=== PATIENT | male | born 1945 | race Asian ===

== ENCOUNTER 2018-02-03 15:04 | Emergency (ER) | payer OTHER ==
[~2018-02-03] VITALS: Ht 165.1 cm; Wt 72.7 kg
[2018-02-03 15:17] LABS: GLUCOSE,POINT OF CARE 172 MG/DL (70-110)
[2018-02-03] MEDS ORDERED: INSLAN SQ (15:18)
[2018-02-03] MEDS ORDERED: ASCO500 PO (15:18)
[2018-02-03] MEDS ORDERED: ASPI81 PO (15:18)
[2018-02-03] MEDS ORDERED: ATOR20TA86 PO (15:18)
[2018-02-03] MEDS ORDERED: CLON-570 PO (15:18)
[2018-02-03] MEDS ORDERED: OLME40 PO (15:18)
[2018-02-03] MEDS ORDERED: METF500T4 PO (15:18)
[2018-02-03] MEDS ORDERED: AMLO-511 PO (15:18)
[2018-02-03] MEDS ORDERED: VITAD1000 PO (15:18)
[2018-02-03] MEDS ORDERED: FINA5TAB41 PO (15:18)
[2018-02-03] MEDS ORDERED: HYDR25TA PO (15:18)
[2018-02-03] MEDS ORDERED: LINA5TAB PO (15:18)
[2018-02-03] MEDS ORDERED: TAMS0.4C32 PO (15:19)
[2018-02-03 16:19] LABS: BASOPHILS % (AUTO) 0.5 % (0.0-2.0); EOSINOPHILS % (AUTO) 0.4 % (1.0-6.0); HEMATOCRIT 38.1 % (41-53); LYMPHOCYTES # (AUTO) 1.2 K/uL (1.0-4.8); LYMPHOCYTES % (AUTO) 12.6 % (22.0-44.0); MEAN CORPUSCULAR HEMOGLOBIN 34.3 pg (26.0-34.0); MEAN CORPUSCULAR HGB CONC 34.1 G/dL (31.0-37.0); MEAN CORPUSCULAR VOLUME 101 fL (80-100); MONOCYTES # (AUTO) 0.7 K/uL (0.1-1.0); MONOCYTES % (AUTO) 7.3 % (2.0-9.0); NEUTROPHILS # (AUTO) 7.7 K/uL (1.8-7.7); NEUTROPHILS % (AUTO) 79.2 % (40.0-70.0); PLATELET COUNT (AUTO) 201 K/uL (150-450); RED BLOOD CELL COUNT(AUTO) 3.78 MIL/uL (4.50-5.90); RED CELL DISTRIBUTION WIDTH 13.1 % (11.5-14.5)
[2018-02-03 16:29] LABS: ANION GAP 9 mmol/L (8-16); CALCIUM, TOTAL 9.4 mg/dL (8.8-10.5); CARBON DIOXIDE 27 mmol/L (22-29); CHLORIDE 94 mmol/L (98-107); CREATININE 1.23 mg/dL (0.60-1.30); GLOMERULAR FILTR. RATE CALC 58 mL/min (>60); GLUCOSE,RANDOM 120 mg/dL (70-110); POTASSIUM 3.9 mmol/L (3.5-5.1); SODIUM SERUM 130 mmol/L (136-145); UREA NITROGEN, BLOOD 21 mg/dL (7-18)
[2018-02-03 16:34] LABS: APPEARANCE,URINE CLEAR (CLEAR); BILIRUBIN,URINE NEGATIVE (NEGATIVE); GLUCOSE, URINE (UA) 100 mg/dL (NEGATIVE); KETONES,URINE NEGATIVE (NEGATIVE); LEUKOCYTE ESTERASE ,URINE NEGATIVE (NEGATIVE); NITRATE,URINE NEGATIVE (NEGATIVE); OCCULT BLOOD,URINE NEGATIVE (NEGATIVE); PH,URINE 5.5 (5.0-8.0); PROTEIN,URINE SEE CONFIRM (NEGATIVE); UROBILINOGEN,URINE 0.2 mg/dL (<=1.0)
[2018-02-03 16:35] LABS: INR 0.9 (0.9-1.1); PROTHROMBIN TIME 9.8 SEC (9.4-11.6)
[2018-02-03 16:50] LABS: B-TYPE NATRIURETIC PEPTIDE 67 pg/mL (0-100)
[2018-02-03 16:55] LABS: ALANINE AMINOTRANSFERASE 36 U/L (12-78); ALKALINE PHOSPHATASE 57 U/L (46-116); ASPARTATE AMINOTRANSFERASE 30 U/L (15-37); BILIRUBIN,TOTAL 0.5 mg/dL (0.1-1.0); CREATINE KINASE MB 2.9 ng/mL (0-5); CREATINE KINASE, TOTAL 275 U/L (39-308); LIPASE 188 U/L (73-393); TOTAL PROTEIN, SERUM 8.3 g/dL (6.4-8.2)
[2018-02-03 17:01] LABS: SULFOSALICYLIC ACID,URINE 2+ (Negative)
[2018-02-03 17:02] LABS: BACTERIA,URINE None Seen /HPF (None Seen); RBC,URINE None Seen /HPF (0-2); SQUAMOUS EPITHELIAL CELL,UR Rare /LPF (None Seen); WBC,URINE None Seen /HPF (0-5)
[2018-02-03] MEDS ORDERED: SODIUM PHOS/SODIUM BIPHOS 133 ML ENEMA PR ONE (18:45)
[2018-02-03 22:17] VITALS: BP 147/79
== END 2018-02-03 22:19 | disposition home or self-care (01) ==
LOC: EMS 15:05
DX: K59.00 Constipation, unspecified (principal); E11.9 Type 2 diabetes mellitus without complications; I11.9 Hypertensive heart disease without heart failure; I25.2 Old myocardial infarction; E78.00 Pure hypercholesterolemia, unspecified; Z95.1 Presence of aortocoronary bypass graft; Z79.4 Long term (current) use of insulin; Z79.82 Long term (current) use of aspirin
CPT/HCPCS: 74018; 82962; 93005; 99285